=== PATIENT | female | born 1975 ===

== ENCOUNTER 2022-11-05 09:32 | Inpatient (IN) | payer OTHER ==
[~2022-11-05] VITALS: Ht 152.4 cm; Wt 94.8 kg
[2022-11-05] MEDS ORDERED: WIXELA 500-501 EACH IH (13:52)
[2022-11-05] MEDS ORDERED: CALAN SR 120MG120 MG PO (13:52)
[2022-11-05] MEDS ORDERED: COZAAR25 MG PO (13:52)
[2022-11-05] MEDS ORDERED: VENTOLIN HFA18 GM IH (13:53)
[2022-11-05] MEDS ORDERED: ALBUTEROL0.63 MG/3 IH (13:53)
[2022-11-05] MEDS ORDERED: ZOLOFT50 MG PO (13:54)
[2022-11-05] MEDS ORDERED: RESTORIL30 M1 PO (13:54)
[2022-11-05] MEDS ORDERED: CLONAZEPAM1 MG PO (13:54)
[2022-11-05] MEDS ORDERED: SINGULAIR10 MG PO (13:54)
[2022-11-11] MEDS ORDERED: FLONASE16 GM (08:33)
[2022-11-11] MEDS ORDERED: VERAPAMIL ER180 MG (08:33)
[2022-11-11] MEDS ORDERED: HYDROCHLOROTH12.5 MG (08:33)
[2022-11-11] MEDS ORDERED: OMEPRAZOLE20 MG (08:33)
[2022-11-11] MEDS ORDERED: FAMOTIDINE20 MG (08:33)
== END 2022-11-12 14:23 | disposition home or self-care (01) | DRG 334 ==
LOC: SURH 11-11 06:58 → O/R 11-11 06:58 → SURG 11-11 11:00 → SURH 11-11 12:01
PROVIDERS: ADMIT Colon & Rectal Surgery; ATTEND Colon & Rectal Surgery
PROC: 0DJD8ZZ Inspection of Lower Intestinal Tract, Via Natural or Artificial Opening Endoscopic (ICD-10-PCS; 2022-11-11)
PROC: 0DBP4ZZ Excision of Rectum, Percutaneous Endoscopic Approach (ICD-10-PCS; principal; 2022-11-11 11:00)
DX: C20 Malignant neoplasm of rectum (principal); Z20.822 Contact with and (suspected) exposure to COVID-19
CPT/HCPCS: 0184T; 45300; 45123